=== PATIENT | male | born 1980 | race Caucasian/White ===

== ENCOUNTER 2018-03-13 15:08 | Emergency (ER) | payer MEDICAID | END 2018-03-13 15:09 | disposition home or self-care (01) | LOC: D.ER 15:08 | DX: Z02.9 Encounter for administrative examinations, unspecified (principal) ==

== ENCOUNTER 2018-03-16 12:45 | Emergency (ER) | payer MEDICAID | END 2018-03-16 17:37 | disposition home or self-care (01) | LOC: D.ER 12:45 | DX: L02.11 Cutaneous abscess of neck (principal); F17.200 Nicotine dependence, unspecified, uncomplicated; I10 Essential (primary) hypertension ==

== ENCOUNTER 2018-06-20 06:51 | Emergency (ER) | payer MEDICAID ==
[~2018-06-20] VITALS: Ht 182.9 cm; Wt 78.2 kg
[2018-06-20 07:00] VITALS: Ht 182.9 cm; Wt 78.2 kg
[2018-06-20] MEDS ORDERED: XANAX2 MG PO (07:01)
[2018-06-20] MEDS ORDERED: BACTRIM DS TABL1 TAB PO (07:28)
[2018-06-20 08:01] VITALS: BP 114/78
[2018-06-24 17:55] VITALS: Ht 182.9 cm; Wt 78.2 kg
== END 2018-06-20 08:02 | disposition home or self-care (01) ==
LOC: D.ER 06:51
DX: L02.414 Cutaneous abscess of left upper limb (principal); B95.62 Methicillin resistant Staphylococcus aureus infection as the cause of diseases classified elsewhere; F17.200 Nicotine dependence, unspecified, uncomplicated

== ENCOUNTER 2018-06-20 17:26 | Inpatient (IN) | payer MEDICAID ==
[~2018-06-20] VITALS: Ht 182.9 cm; Wt 78.0 kg
--- NOTE | ~2018-06-20 | OP ---
PATIENT NAME: OLEGARIO DENNEY MEDICAL RECORD: [id number] :80 LOCATION:[facility] ADMISSION DATE:06/20/18 SURGEON: TADEO LE MD DATE OF OPERATION: 06/21/2018 PREOPERATIVE DIAGNOSES: 1. Left upper extremity abscess. 2. Methicillin-resistant Staphylococcus aureus. POSTOPERATIVE DIAGNOSES: 1. Left upper extremity abscess. 2. Methicillin-resistant Staphylococcus aureus. PROCEDURE: I&D of left upper extremity abscess. SURGEON: Tadeo Le MD REPORT OF PROCEDURE: The patient's left upper extremity was prepped and draped in sterile fashion. There is an area of fluctuance on the left upper extremity and this was opened up with 15-blade. There was a small amount of pus that was initially seen in this. We probed the wound, more pus was expelled. Cultures were taken x2. We then irrigated out the wound thoroughly with peroxide and saline solution and then packed the wound with 2 strips of quarter-inch peroxide soaked packing strips. We then covered this with 4 x 4's and Kerlix. COMPLICATIONS: None. CONDITION: Stable. ANESTHESIA: General endotracheal. BLOOD LOSS: Minimal. TRANSINT:[id number] Voice Confirmation ID: [id number] DOCUMENT ID: [id number] TADEO LE MD at 2259 CC: [id number] DICTATION DATE: 06/21/18 1533 WATCH ENGINEER: 06/21/18 1542 DIS IN 06/22/18 [id number] [place] [id number]
[~2018-06-20 17:26] MED LIST: BACTRIM DS TABL1 TAB PO; XANAX2 MG PO
[2018-06-20 18:14] LABS: BASOPHILS 0.1 % (0-2); EOSINOPHILS 0.1 % (0-7); HEMATOCRIT 43.3 % (42.0-54.0); HEMOGLOBIN 15.1 g/dL (13.5-17.5); IMMATURE GRANULOCYTES 0.2 % (0-5); MCH 28.8 pg (26.0-34.0); MCHC 34.9 g/dL (31.0-37.0); MCV 82.6 fL (80.0-100.0); MEAN PLATELET VOLUME 9.5 fL (7.4-10.4); NEUTROPHILS 81.6 % (40-80); PLATELET COUNT 200 10x3/uL (130-400); RBC 5.24 10x6/uL (4.20-6.10); RDW 14.1 % (11.5-14.5); WBC 17.5 10x3/uL (4.8-10.8)
[2018-06-20 18:46] LABS: ALBUMIN 3.6 g/dL (3.4-5.0); ALKALINE PHOSPHATASE 56 U/L (46-116); ALT (SGPT) 11 U/L (10-68); CALC OSMOLALITY 272 mosm/kg (275-300); CALCIUM 8.6 mg/dL (8.5-10.1); CARBON DIOXIDE 31.8 mmol/L (21.0-32.0); CHLORIDE - SERUM 99 mmol/L (98-107); GLUCOSE 129 mg/dL (74-106); POTASSIUM - SERUM 3.7 mmol/L (3.5-5.1); PROTEIN - SERUM 6.6 g/dL (6.4-8.2); SODIUM 136 mmol/L (136-145); UREA NITROGEN 9 mg/dL (7-18); eGFR NON AFRICAN AMERICAN 89 mL/min (90-120)
[2018-06-20 19:50] VITALS: BP 122/73
[2018-06-21] VITALS (9 sets, daily range): BP systolic 107–180; BP diastolic 52–88; Ht 182.9 cm; Wt 78.0 kg
[2018-06-21 04:39] LABS: BASOPHILS 0.2 % (0-2); EOSINOPHILS 0.7 % (0-7); HEMATOCRIT 38.6 % (42.0-54.0); IMMATURE GRANULOCYTES 0.3 % (0-5); LYMPHOCYTES 19.6 % (15-50); MCH 27.8 pg (26.0-34.0); MCHC 33.7 g/dL (31.0-37.0); MCV 82.7 fL (80.0-100.0); MEAN PLATELET VOLUME 9.7 fL (7.4-10.4); MONOCYTES 10.8 % (2-11); NEUTROPHILS 68.4 % (40-80); PLATELET COUNT 204 10x3/uL (130-400); RBC 4.67 10x6/uL (4.20-6.10); RDW 14.2 % (11.5-14.5); WBC 14.8 10x3/uL (4.8-10.8)
[2018-06-21 04:56] LABS: CALC OSMOLALITY 277 mosm/kg (275-300); CALCIUM 8.3 mg/dL (8.5-10.1); CARBON DIOXIDE 31.4 mmol/L (21.0-32.0); CHLORIDE - SERUM 103 mmol/L (98-107); CREATININE - SERUM 0.9 mg/dL (0.6-1.3); GLUCOSE 92 mg/dL (74-106); MAGNESIUM - SERUM 2.4 mg/dL (1.8-2.4); POTASSIUM - SERUM 3.5 mmol/L (3.5-5.1); SODIUM 139 mmol/L (136-145); eGFR NON AFRICAN AMERICAN > 90 mL/min (90-120)
[2018-06-21 04:58] LABS: UREA NITROGEN 12 mg/dL (7-18)
[2018-06-22 04:50] VITALS: BP 100/53
[2018-06-22 08:50] VITALS: BP 114/60
[2018-06-22] MEDS ORDERED: DOXYCYCLINE HY100 M2 PO (11:37)
[2018-06-22] MEDS ORDERED: HYDROCODONE-APA1 TAB PO (11:39)
[2018-06-22 12:51] VITALS: BP 117/71
[2018-06-23] MEDS ORDERED: TORADOL10 MG PO (21:32)
== END 2018-06-22 16:11 | disposition home or self-care (01) | DRG 603 ==
LOC: D.ER 17:26 → D.EDHOLD 18:56 → D.MS 18:56
PROVIDERS: Emergency Medicine; Surgery
PROC: 0H9EXZZ Drainage of Left Lower Arm Skin, External Approach (ICD-10-PCS; principal; 2018-06-21 13:00)
DX: L02.414 Cutaneous abscess of left upper limb (principal); B95.62 Methicillin resistant Staphylococcus aureus infection as the cause of diseases classified elsewhere; F41.9 Anxiety disorder, unspecified; Z72.0 Tobacco use

== ENCOUNTER 2018-06-23 18:08 | Emergency (ER) | payer MEDICAID ==
[~2018-06-23] VITALS: Ht 182.9 cm; Wt 78.2 kg
[~2018-06-23 18:08] MED LIST changes: +DOXYCYCLINE HY100 M2 PO; +HYDROCODONE-APA1 TAB PO
[2018-06-23 18:24] VITALS: Ht 182.9 cm; Wt 78.2 kg
[2018-06-23 19:41] LABS: HEMATOCRIT 33.9 % (42.0-54.0); HEMOGLOBIN 11.5 g/dL (13.5-17.5); LYMPHOCYTES 26.5 % (15-50); MCH 28.3 pg (26.0-34.0); MCHC 33.9 g/dL (31.0-37.0); MCV 83.3 fL (80.0-100.0); MEAN PLATELET VOLUME 8.7 fL (7.4-10.4); NEUTROPHILS 61.1 % (40-80); PLATELET COUNT 254 10x3/uL (130-400); RBC 4.07 10x6/uL (4.20-6.10)
[2018-06-23 19:44] LABS: ALBUMIN 2.8 g/dL (3.4-5.0); ALKALINE PHOSPHATASE 47 U/L (46-116); ALT (SGPT) 15 U/L (10-68); BILIRUBIN - TOTAL 0.16 mg/dL (0.2-1.3); CALC OSMOLALITY 285 mosm/kg (275-300); CALCIUM 8.3 mg/dL (8.5-10.1); CARBON DIOXIDE 30.7 mmol/L (21.0-32.0); CHLORIDE - SERUM 107 mmol/L (98-107); CREATININE - SERUM 0.9 mg/dL (0.6-1.3); GLUCOSE 78 mg/dL (74-106); POTASSIUM - SERUM 3.8 mmol/L (3.5-5.1); SODIUM 144 mmol/L (136-145); UREA NITROGEN 13 mg/dL (7-18); eGFR NON AFRICAN AMERICAN > 90 mL/min (90-120)
[2018-06-23] MEDS ORDERED: TORADOL10 MG PO (21:32)
[2018-06-23 22:03] VITALS: BP 118/80
== END 2018-06-23 22:03 | disposition home or self-care (01) ==
LOC: D.ER 18:08
PROVIDERS: Family Medicine
DX: L03.114 Cellulitis of left upper limb (principal); R53.81 Other malaise; R53.83 Other fatigue

== ENCOUNTER 2018-06-24 17:24 | Emergency (ER) | payer MEDICAID ==
[~2018-06-24] VITALS: Ht 182.9 cm; Wt 77.3 kg
[~2018-06-24 17:24] MED LIST changes: +TORADOL10 MG PO
[2018-06-24 17:55] VITALS: Ht 182.9 cm; Wt 77.3 kg
[2018-06-24 19:45] VITALS: BP 120/81
== END 2018-06-24 19:45 | disposition left against medical advice (07) ==
LOC: D.ER 17:24
DX: R20.2 Paresthesia of skin (principal)